=== PATIENT | male | born 1980 | race Caucasian/White ===

== ENCOUNTER 2024-08-16 07:10 | Inpatient (IN) | payer OTHER ==
[~2024-08-16] VITALS: Ht 188 cm; Wt 110.8 kg
[2024-08-16] MEDS ORDERED: Ondansetron HCl 2 MG / ML 2ML Vial IV ONE (07:15)
[2024-08-16] MEDS ORDERED: HYDROmorphone HCl/Pf 1MG SYR IV ONE ×4 (07:15→10:25)
[2024-08-16] MEDS ORDERED: Ketorolac Tromethamine 30mg Vial IV ONE (08:35)
[2024-08-16] MEDS ORDERED: Ketamine HCl 100 MG / ML 5ML Vial IV ONE (08:40)
[2024-08-16] MEDS ORDERED: NS 1,000 ML IV ONE (09:07)
[2024-08-16] MEDS ORDERED: LORazepam 2 MG/ML 1ML Injection IV ONE (10:10)
[2024-08-16] MEDS ORDERED: Morphine Sulfate 10 MG/ML 1MLSYR IV ONE (12:50)
[2024-08-16] MEDS ORDERED: FLU VACC TS2024-25(6MOS UP)/PF 45 MCG/0.5 ML SYRINGE IM ONE (13:30)
[2024-08-16] MEDS ORDERED: HYDROmorphone HCl/Pf 1MG SYR IV PRN (13:30)
[2024-08-16] MEDS ORDERED: Ondansetron HCl 2 MG / ML 2ML Vial IV PRN (13:35)
[2024-08-16] MEDS ORDERED: Ketorolac Tromethamine 15mg Vial IV PRN (15:00)
[2024-08-16 16:50] LABS: International Normalized Ratio 0.95; Prothrombin Time Results 10.2 Sec (9.7-11.5)
[2024-08-16 16:59] LABS: Albumin, Blood 3.3 g/dL (3.4-5.0); Bilirubin, Total 0.4 mg/dL (0.1-1.0); Bun/Creatinine Ratio 15.2 (12.0-20.0); Calcium, Blood 7.9 mg/dL (8.5-10.1); Creatinine, Blood 0.72 mg/dL (0.60-1.20); Globulin, Blood 3.4 g/dL (2.2-4.0); Potassium, Blood 4.2 mmol/L (3.5-5.5); Total Protein, Blood 6.7 g/dL (6.4-8.2)
[2024-08-16 17:39] LABS: BASOPHILS PERCENT AUTO 1 % (0-2); EOSINOPHILS PERCENT AUTO 1 % (0-6); Hematocrit 37.8 % (37.0-53.0); Hemoglobin 12.4 g/dL (13.5-17.5); IMMATURE GRAN ABSOLUTE AUTO 0.04 K/mm3 (0.00-0.10); IMMATURE GRAN PERCENT AUTO 0 % (0-1); LYMPHOCYTES ABSOLUTE AUTO 2.27 K/mm3 (0.84-5.20); LYMPHOCYTES PERCENT AUTO 19 % (21-46); MONOCYTES ABSOLUTE AUTO 0.89 K/mm3 (0.16-1.47); MONOCYTES PERCENT AUTO 7 % (4-13); Mean Corpuscular HGB 29.6 pg (26.0-34.0); Mean Corpuscular HGB Conc 32.8 g/dL (31.5-36.5); Mean Corpuscular Volume 90 fL (80-100); Mean Platelet Volume 9.9 fL (9.1-12.4); NEUTROPHILS ABSOLUTE AUTO 8.56 K/mm3 (1.96-9.15); NEUTROPHILS PERCENT AUTO 72 % (41-73); Platelet Count 274 K/mm3 (150-400); RDW Coefficient Variation 14.8 % (11.7-14.2); RDW Standard Deviation 49.9 fL (35.1-46.3); Red Blood Cell Count 4.19 M/mm3 (4.30-5.90); White Blood Cell Count 11.96 K/mm3 (4.00-11.30)
[2024-08-16 17:48] VITALS: BP 130/71
[2024-08-16] MEDS ORDERED: OXYC5 PO (18:24)
--- NOTE | 2024-08-16 19:38 | NUR ---
SHIFT SUMMARY PT ARRIVED NEAR END OF SHIFT, HX DISCUSSED WITH HIM AND HIS , DISCUSSED TENTATIVE PLAN FOR TOMORROW WITH POSSIBLE SURGERY PENDING ORTHO RECOMMENDATIONS WHICH THEY WILL DISCUSS WITH HIM TOMORROW. SPLINT TO RLE TOES TO KNEE, RLE SHORTENED WITH KNEE BENT AND EXTERIOR ROTATION. AT THE BEDSIDE, CALL LIGHT IN REACH.
[2024-08-16 20:20] VITALS: BP 120/81
[2024-08-16] MEDS ORDERED: Sennosides 8.6 MG Tab PO SCH (21:00)
[2024-08-16] MEDS ORDERED: Docusate Sodium 100 MG Cap PO SCH (21:00)
[2024-08-17] VITALS (21 sets, daily range): BP systolic 114–135; BP diastolic 64–87
--- NOTE | 2024-08-17 04:20 | NUR ---
SHIFT SUMMARY NORMA WAS ALERT AND FULLY ORIENTED ON ASSESMENT. PT PAIN MODERATELY WELL CONTROLLED, BUT REQUIRING FREQUENT MEDICATION. SPLINT IN PLACE, CIRCULATION AND SENSATION INTACT. AWAITING SURGERY. PT NPO FROM MIDNIGHT. NO ACUTE EVENTS, NO NOTED CHANGES TO PT CONDITION.
[2024-08-17 04:39] LABS: BASOPHILS PERCENT AUTO 1 % (0-2); EOSINOPHILS ABSOLUTE AUTO 0.37 K/mm3 (0.00-0.68); EOSINOPHILS PERCENT AUTO 3 % (0-6); Hematocrit 37.5 % (37.0-53.0); Hemoglobin 12.3 g/dL (13.5-17.5); IMMATURE GRAN ABSOLUTE AUTO 0.03 K/mm3 (0.00-0.10); IMMATURE GRAN PERCENT AUTO 0 % (0-1); LYMPHOCYTES ABSOLUTE AUTO 2.88 K/mm3 (0.84-5.20); LYMPHOCYTES PERCENT AUTO 26 % (21-46); MONOCYTES ABSOLUTE AUTO 1.16 K/mm3 (0.16-1.47); MONOCYTES PERCENT AUTO 11 % (4-13); Mean Corpuscular HGB 29.4 pg (26.0-34.0); Mean Corpuscular HGB Conc 32.8 g/dL (31.5-36.5); Mean Corpuscular Volume 90 fL (80-100); Mean Platelet Volume 9.9 fL (9.1-12.4); NEUTROPHILS ABSOLUTE AUTO 6.42 K/mm3 (1.96-9.15); NEUTROPHILS PERCENT AUTO 59 % (41-73); Platelet Count 262 K/mm3 (150-400); RDW Coefficient Variation 15.2 % (11.7-14.2); RDW Standard Deviation 50.4 fL (35.1-46.3); Red Blood Cell Count 4.18 M/mm3 (4.30-5.90); White Blood Cell Count 10.96 K/mm3 (4.00-11.30)
[2024-08-17 04:56] LABS: Albumin, Blood 3.1 g/dL (3.4-5.0); Bilirubin, Total 0.2 mg/dL (0.1-1.0); Bun/Creatinine Ratio 14.3 (12.0-20.0); Calcium, Blood 8.3 mg/dL (8.5-10.1); Creatinine, Blood 0.84 mg/dL (0.60-1.20); Globulin, Blood 3.1 g/dL (2.2-4.0); Total Protein, Blood 6.2 g/dL (6.4-8.2)
[2024-08-17] MEDS ORDERED: Lactated Ringer's 1,000 ML IV SCH (11:20)
[2024-08-17] MEDS ORDERED: propofoL 20 ML IV ONE ×2 (11:31→15:37)
--- NOTE | 2024-08-17 11:40 | NUR ---
TO DAY SURGERY VIA HOSPITAL BED
--- NOTE | 2024-08-17 11:51 | NUR ---
History, Chart, Medications and Allergies reviewed before start of procedure. Pre-Op teaching done. Pt verbalizes understanding. Patient confirms NPO status and agrees with scheduled surgery. ALL PT BELONGINGS LEFT IN SURG FLOOR RM. PT UNABLE TO REMOVE HOSPITAL PAPER PANTS AND PERSONAL UNDERWEAR. THIS RN EXPLAINED TO PT THAT UNDERWEAR MAY NEED TO BE CUT OFF IF OR IS UNABLE TO REMOVE THEM.
[2024-08-17] MEDS ORDERED: Tranexamic Acid 1,000 MG in NS 100 ML IV SCH (12:10)
[2024-08-17] MEDS ORDERED: CeFAZolin Sodium 2,000 MG in NS 100 ML IV SCH (12:10)
[2024-08-17] MEDS ORDERED: FentaNYL Citrate 50 MCG/ML 2 ML Injection IV PRN (12:40)
[2024-08-17] MEDS ORDERED: propofoL 150 ML IV ONE (13:20)
[2024-08-17] MEDS ORDERED: FentaNYL Citrate 50 MCG/ML 2 ML Injection ONE ×4 (13:23→17:12)
[2024-08-17] MEDS ORDERED: Midazolam HCl 1MG / ML 2ML Vial IV SCH (13:25)
[2024-08-17] MEDS ORDERED: Dexamethasone Sod Phos 10 MG/ML 1ML VIAL ONE (14:17)
[2024-08-17] MEDS ORDERED: Ondansetron HCl 2 MG / ML 2ML Vial ONE (14:17)
[2024-08-17] MEDS ORDERED: Ketorolac Tromethamine 30mg Vial ONE (14:17)
[2024-08-17] MEDS ORDERED: Rocuronium Bromide 10 MG/ML 5ML Injection IV ONE (14:17)
[2024-08-17] MEDS ORDERED: Bupivacaine 0.5% HCl 5 MG/ML 30MLVIAL ONE (14:31)
[2024-08-17] MEDS ORDERED: EpiNEPhrine 1 MG/1 ML 1ML Vial ONE (14:31)
[2024-08-17] MEDS ORDERED: HYDROmorphone HCl/Pf 1MG SYR ONE ×3 (14:35→16:42)
[2024-08-17] MEDS ORDERED: Sugammadex Sodium 200 MG/2ML SDV (100 MG/ML) ONE (15:02)
[2024-08-17] MEDS ORDERED: ePHEDrine Sulfate 50 MG/ML 1ML Injection ONE (15:12)
[2024-08-17] MEDS ORDERED: OxyCODONE HCL 5 MG TAB PO PRN (18:20)
--- NOTE | 2024-08-17 18:30 | NUR ---
PAIN PT ARRIVED TO THE ROOM FROM PACU AT 1738. PT ALERT/ORIENTED UPON ARRIVAL. PT RATES PAIN AT 9/10, PT GRIMACING, HOLDING HIS LEG AND HAS INCREASED RESPIRATIONS. PT GIVEN DILAUDID AND PLACED ON A CONTINUOUS PULSE OXIMETER. PT AND HIS SPOUSE EDUCATED ABOUT RISKS OF PAIN MEDICATION WELL BENEFITS; THEY REPORTED UNDERSTANDING.
--- NOTE | 2024-08-17 19:35 | NUR ---
SHIFT SUMMARY PT WENT TO OR TODAY FOR REPAIR. CONT's TO BE VERY PAINFUL REQUIRING INCREASED AMOUNTS OF PAIN MEDS.
--- NOTE | 2024-08-17 19:55 | NUR ---
BEDSIDE REPORT GIVEN TO NOC RN. PT RATES PAIN AT 10/10 DURING BEDSIDE REPORT BUT STATES PAIN IS NOW COMING IN WAVES INSTEAD OF CONSTANT. PT APPEARS TO HAVE OVERALL IMPROVED COMFORT AND IS ABLE TO DISTRACT HIMSELF WITH MUSIC. HE IS ALSO ABLE TO POSITION FOR IMPROVED COMFORT BUT STILL APPEARS PAINFUL. RESP RATE STILL INCREASED, HR 90-100'S, INTERMITTENT GRIMACING.
[2024-08-17] MEDS ORDERED: Cyclobenzaprine HCl 10 MG Tab PO PRN (23:30)
[2024-08-18] MEDS ORDERED: Acetaminophen 500 MG Tab PO SCH
[2024-08-18 00:23] VITALS: BP 125/70
--- NOTE | 2024-08-18 04:11 | NUR ---
SHIFT SUMMARY POD 1 R TIBIAL RODDING PT RESTED SOME DURING THE SHIFT. PT PAINFUL AND TRYING TO KEEP PAIN UNDER CONTROL. PT ABLE TO WIGGLE TOES, FEELS SENSATION AND CAP REFILL IS WNL. SPLINT TO RLE IS C/D/I. PT TOLERATING PO INTAKE, VOIDING. VSS. NO OTHER CONCERNS AT THIS TIME, CALL LIGHT WITHIN REACH
[2024-08-18 04:28] VITALS: BP 104/59
[2024-08-18 07:02] VITALS: BP 117/77
[2024-08-18] MEDS ORDERED: Ketorolac Tromethamine 30mg Vial IV PRN (07:45)
[2024-08-18 08:00] LABS: BASOPHILS ABSOLUTE AUTO 0.05 K/mm3 (0.00-0.23); BASOPHILS PERCENT AUTO 0 % (0-2); EOSINOPHILS ABSOLUTE AUTO 0.06 K/mm3 (0.00-0.68); EOSINOPHILS PERCENT AUTO 0 % (0-6); Hematocrit 36.6 % (37.0-53.0); Hemoglobin 11.9 g/dL (13.5-17.5); IMMATURE GRAN ABSOLUTE AUTO 0.06 K/mm3 (0.00-0.10); IMMATURE GRAN PERCENT AUTO 0 % (0-1); LYMPHOCYTES ABSOLUTE AUTO 2.56 K/mm3 (0.84-5.20); LYMPHOCYTES PERCENT AUTO 14 % (21-46); MONOCYTES ABSOLUTE AUTO 1.68 K/mm3 (0.16-1.47); MONOCYTES PERCENT AUTO 9 % (4-13); Mean Corpuscular HGB 29.7 pg (26.0-34.0); Mean Corpuscular HGB Conc 32.5 g/dL (31.5-36.5); Mean Corpuscular Volume 91 fL (80-100); Mean Platelet Volume 9.9 fL (9.1-12.4); NEUTROPHILS ABSOLUTE AUTO 14.03 K/mm3 (1.96-9.15); NEUTROPHILS PERCENT AUTO 76 % (41-73); Platelet Count 278 K/mm3 (150-400); RDW Coefficient Variation 14.6 % (11.7-14.2); RDW Standard Deviation 49.7 fL (35.1-46.3); Red Blood Cell Count 4.01 M/mm3 (4.30-5.90); White Blood Cell Count 18.44 K/mm3 (4.00-11.30)
[2024-08-18 08:15] LABS: Bun/Creatinine Ratio 14.3 (12.0-20.0); Calcium, Blood 8.5 mg/dL (8.5-10.1); Creatinine, Blood 0.77 mg/dL (0.60-1.20); Potassium, Blood 4.4 mmol/L (3.5-5.5)
[2024-08-18] MEDS ORDERED: Enoxaparin 40 MG/0.4 ML SYR SC SCH (09:00)
[2024-08-18 15:02] VITALS: BP 122/75
[2024-08-18] MEDS ORDERED: HYDROmorphone HCl 2 MG Tab PO PRN (16:15)
[2024-08-18] MEDS ORDERED: Nicotine 21 MG PATCH TOP SCH (17:00)
--- NOTE | 2024-08-18 17:43 | NUR ---
SHIFT SUMMARY PT IS POD1 FOR R TIBIA RODDING. SPLINT AND BIBI WRAP IN PLACE C/D/I, PT ABLE TO WIGGLE ALL TOES, CAP REFILL 2 SECS. WB STATUS CLARIFIED W/ DR. STEVENS, PT IS WBAT IN R LEG. 2 ASST PIVOT TRANSFER W/ FWW AND GB TO B[facility]. PT REPORTS HIGH PAIN LEVEL AFTER PRN AND SCHEDULED PAIN MEDS BUT SAYS IT IS SLOWLY IMPROVING. TOLERATING REG DIET, VOIDING, HAD CONT BM IN BSC TODAY. S/O AT BEDSIDE MOST OF SHIFT. PLAN TO D/C TO SNF. CALL LIGHT IN REACH.
[2024-08-18 19:15] VITALS: BP 125/74
--- NOTE | 2024-08-19 04:31 | NUR ---
SHIFT SUMMARY POD 2 R TIBIAL RODDING PT ABLE TO SLEEP MORE THIS SHIFT. PAIN BETTER MANAGED WITH PO DILAUDID. PT ABLE TO TRANSFER TO B[facility]. PT VOIDING AND HAVING BM'S. PT TOLERATING PO INTAKE. PT ABLE TO WIGGLE TOES, GOOD CAP REFILL. DENIES ANY N/T IN RLE. SPLINT TO RLE C/D/I. VSS. NO OTHER CONCERNS AT THIS TIME, CALL LIGHT WITHIN REACH
[2024-08-19 06:30] VITALS: BP 106/69
[2024-08-19 07:55] VITALS: BP 110/73
[2024-08-19 08:43] LABS: BASOPHILS ABSOLUTE AUTO 0.13 K/mm3 (0.00-0.23); BASOPHILS PERCENT AUTO 1 % (0-2); EOSINOPHILS ABSOLUTE AUTO 0.68 K/mm3 (0.00-0.68); EOSINOPHILS PERCENT AUTO 6 % (0-6); Hematocrit 38.5 % (37.0-53.0); Hemoglobin 12.5 g/dL (13.5-17.5); IMMATURE GRAN ABSOLUTE AUTO 0.04 K/mm3 (0.00-0.10); IMMATURE GRAN PERCENT AUTO 0 % (0-1); LYMPHOCYTES ABSOLUTE AUTO 2.76 K/mm3 (0.84-5.20); LYMPHOCYTES PERCENT AUTO 23 % (21-46); MONOCYTES ABSOLUTE AUTO 1.07 K/mm3 (0.16-1.47); MONOCYTES PERCENT AUTO 9 % (4-13); Mean Corpuscular HGB 29.6 pg (26.0-34.0); Mean Corpuscular HGB Conc 32.5 g/dL (31.5-36.5); Mean Corpuscular Volume 91 fL (80-100); Mean Platelet Volume 10.2 fL (9.1-12.4); NEUTROPHILS ABSOLUTE AUTO 7.22 K/mm3 (1.96-9.15); NEUTROPHILS PERCENT AUTO 61 % (41-73); Platelet Count 269 K/mm3 (150-400); RDW Coefficient Variation 15.1 % (11.7-14.2); RDW Standard Deviation 50.5 fL (35.1-46.3); Red Blood Cell Count 4.22 M/mm3 (4.30-5.90)
--- NOTE | 2024-08-19 09:30 | NUR ---
UPDATE PT DISCUSSING WITH DR PAUL ABOUT DISCHARGE PLAN. RECOMMENDED BY PHYSICAL THERAPY AND HOSPITALIST TO GO TO SNF. PT IS NOT WANTING TO GO TO PHYSICAL THERAPY. DR PAUL DISCUSSED THAT SHE CAN DISCHARGE PT WITH RX FOR PAIN MEDICINE FOR 3-4 DAYS AND THAT HE WILL NEED TO F/U WITH PCP. PT STS HE WON'T BE ABLE TO F/U WITH PCP FOR 1 MONTH. STS THAT HIS PLAN WOULD BE TO GO INTO THE ED IF HE RAN OUT. DR PAUL ALSO BROUGHT UP THAT THE OTHER OPTION WOULD BE HOME HEALTH, BUT THAT THERE IS NO GUARANTEE THEY WILL BE ABLE TO SEE HIM WITHIN THE NEXT 2 BUSINESS DAYS. HE IS OK WAITING UNTIL NEXT WEEK TO SEE HOME HEALTH, IF HE DISCHARGES TODAY. PT'S PRIMARY CONCERN IS GETTING ENOUGH PAIN MEDICINE TO LAST HIM AT HOME.
[2024-08-19 15:11] VITALS: BP 133/90
--- NOTE | 2024-08-19 19:29 | NUR ---
SHIFT SUMMARY ASSUMED CARE FROM PRIOR RN, POD2 R TIBIAL RODDING, A/OX4, VSS, TOLERATING PO, PAIN MANAGED PER EMAR, PENDING PLACEMENT/DISCHARGE NEEDS. NO ACUTE EVENTS THIS SHIFT, CALL LIGHT IN REACH.
[2024-08-19 20:07] VITALS: BP 117/72
[2024-08-20 03:17] VITALS: BP 108/74
--- NOTE | 2024-08-20 04:15 | NUR ---
SHIFT SUMMARY POD 3 R TIBIAL RODDING PT ABLETO REST DURING THE NIGHT. PIN MANAGED PER EMAR. TOLERTING PO INTAKE, VOIDING. SPLINT TO RLE IS C/D/I. PT UP TO TAKE SHOWER TONIGHT. TOLERATED WELL. PT 1P ASST WITH FWW AND GB. PT UNABLE TO PUT ANY WIEGHT ON RLE BECAUSE OF PAIN. VSS. NO OTHER CONCERNS AT THIS TIME, CALL LIGHT WITHIN REACH
[2024-08-20 07:34] VITALS: BP 124/85
[2024-08-20] MEDS ORDERED: ELIQUIS2.5 MG PO (09:47)
[2024-08-20] MEDS ORDERED: ACET500 PO (10:20)
[2024-08-20] MEDS ORDERED: Cyclobenzaprine5 MG PO (10:22)
[2024-08-20] MEDS ORDERED: HYDMOR2 PO (10:23)
[2024-08-20] MEDS ORDERED: FAMO20 PO (10:23)
[2024-08-20] MEDS ORDERED: NAPR500EC PO (10:24)
[2024-08-20] MEDS ORDERED: SENNA LAXATIVE8.6 MG PO (10:32)
[2024-08-20 15:07] VITALS: BP 131/79
--- NOTE | 2024-08-20 18:38 | NUR ---
SHIFT SUMMARY POD3 R TIBIAL RODDING, A/OX4, VSS, TOLERATING PO, PAIN MANAGED PER EMAR AND SEEMS TO BE IMPROVING SLOWLY, ABLE TO GET OOB AND AMBULATE WITH FWW. REPORTS CONCERN ABOUT GOING HOME WITHOUT ASSISTANCE HIS ONLY ACCESS IS A RAMP THAT HE STATES IS "PRETTY STEEP MAKING IT DIFFICULT TO TRY AND GET UP WITH A WALKER OR CRUTCHES". PLEASANT AND COOPERATIVE WITH ALL NURSING STAFF. NO ACUT EVENTS THIS SHIFT, CALL LIGHT IN REACH.
[2024-08-20 20:45] VITALS: BP 117/76
[2024-08-20 22:42] VITALS: BP 109/69
[2024-08-21 04:19] VITALS: BP 137/87
[2024-08-21 07:39] VITALS: BP 114/71
[2024-08-21 08:50] LABS: BASOPHILS PERCENT AUTO 1 % (0-2); EOSINOPHILS ABSOLUTE AUTO 0.72 K/mm3 (0.00-0.68); EOSINOPHILS PERCENT AUTO 6 % (0-6); Hematocrit 35.9 % (37.0-53.0); Hemoglobin 12.1 g/dL (13.5-17.5); IMMATURE GRAN ABSOLUTE AUTO 0.07 K/mm3 (0.00-0.10); IMMATURE GRAN PERCENT AUTO 1 % (0-1); LYMPHOCYTES ABSOLUTE AUTO 2.38 K/mm3 (0.84-5.20); LYMPHOCYTES PERCENT AUTO 19 % (21-46); MONOCYTES ABSOLUTE AUTO 1.23 K/mm3 (0.16-1.47); MONOCYTES PERCENT AUTO 10 % (4-13); Mean Corpuscular HGB 30.2 pg (26.0-34.0); Mean Corpuscular HGB Conc 33.7 g/dL (31.5-36.5); Mean Corpuscular Volume 90 fL (80-100); Mean Platelet Volume 9.9 fL (9.1-12.4); NEUTROPHILS ABSOLUTE AUTO 8.06 K/mm3 (1.96-9.15); NEUTROPHILS PERCENT AUTO 64 % (41-73); Platelet Count 301 K/mm3 (150-400); RDW Coefficient Variation 14.3 % (11.7-14.2); RDW Standard Deviation 46.9 fL (35.1-46.3); Red Blood Cell Count 4.01 M/mm3 (4.30-5.90); White Blood Cell Count 12.56 K/mm3 (4.00-11.30)
[2024-08-21 09:05] LABS: Bun/Creatinine Ratio 23.7 (12.0-20.0); Calcium, Blood 8.9 mg/dL (8.5-10.1); Creatinine, Blood 0.8 mg/dL (0.60-1.20); Potassium, Blood 4.4 mmol/L (3.5-5.5)
--- NOTE | 2024-08-21 13:39 | NUR ---
[facility] CALLED AND SAID DILAUDID RX NEEDED TO BE CHANGED FROM Q4 TO Q6 FOR PT'S INSURANCE TO COVER MEDICATION. DR. PAUL NOTIFIED AND AGREED TO THE CHANGE.
--- NOTE | 2024-08-21 14:47 | NUR ---
DISCHARGE SUMMARY OVERALL, PT'S CONDITION HAS IMPROVED AND PAIN WELL CONTROLLED. PT ANN PO INTAKE, VOIDING, AND HAVING REGULAR BM. DISCHARGE PLAN THOROUGHLY GONE OVER WITH PT AND FAMILY. APT SET UP FOR NEXT WEEK AT [facility] AND PT NOTIFIED. PT ALSO EDUCATED ON NON-PHARMACOLOGICAL TECHNIQUES FOR PAIN CONTROL AND PLAN TO DECREASE NARCOTIC PAIN MEDS. PT WILL F/U WITH ORTHO WITHIN [address] ON RLE C/D/I. ALL QUESTIONS ADDRESSED AND PT WAS VERY APPRECIATIVE OF THE CARE HE RECEIVED WHILE IN THE HOSPITAL. PT HOME VIA [facility].
== END 2024-08-21 14:45 | disposition home health service (06) | DRG 494 ==
LOC: ER 07:10 → SURS 13:28
PROVIDERS: Orthopaedic Surgery; ADMIT Internal Medicine
PROC: 0QSGXZZ Reposition Right Tibia, External Approach (ICD-10-PCS; 2024-08-16)
PROC: 0QSG36Z Reposition Right Tibia with Intramedullary Internal Fixation Device, Percutaneous Approach (ICD-10-PCS; principal; 2024-08-17 14:00)
DX: S82.301A Unspecified fracture of lower end of right tibia, initial encounter for closed fracture (principal); W01.0XXA Fall on same level from slipping, tripping and stumbling without subsequent striking against object, initial encounter; M54.50 Low back pain, unspecified; G89.29 Other chronic pain; S82.441A Displaced spiral fracture of shaft of right fibula, initial encounter for closed fracture; Z79.891 Long term (current) use of opiate analgesic; E66.9 Obesity, unspecified; Z68.31 Body mass index [BMI] 31.0-31.9, adult; Z98.890 Other specified postprocedural states
CPT/HCPCS: 27752; 36415; 73590; 73700; 80048; 80053; 85025; 85610; 94762; 96361-59; 96374-59; 96375-59; 96376-59; 97110; 97116; 97162; 97530; 99152; 99285-25; A9270; C1713; C1769; J0171; J0690; J1100; J1171; J1650; J1885; J2060; J2250; J2270; J2405; J2704; J3010; J7030; J7120

== ENCOUNTER → 2024-10-05 | Outpatient (CLI) | payer OTHER ==
[~2024-10-05] MED LIST: ACET500 PO; Cyclobenzaprine5 MG PO; ELIQUIS2.5 MG PO; FAMO20 PO; HYDMOR2 PO; NAPR500EC PO; OXYC5 PO; SENNA LAXATIVE8.6 MG PO
== END ==
LOC: LAB 17:27 → LAB SHORT 17:27
DX: R31.9 Hematuria, unspecified (principal)
CPT/HCPCS: 87086